=== PATIENT | male | born 1970 | race Hispanic/Latino ===

== ENCOUNTER 2021-04-11 19:22 | Observation (INO) | payer OTHER ==
[~2021-04-11] VITALS: Ht 170.2 cm; Wt 107.6 kg
[2021-04-11] MEDS ORDERED: LIPITOR10 MG PO (19:38)
[2021-04-11] MEDS ORDERED: HYDROCHLOROTHIA25 MG PO (19:38)
[2021-04-11] MEDS ORDERED: TOPROL XL100 MG PO (19:39)
[2021-04-11] MEDS ORDERED: COZAAR50 MG PO (19:39)
[2021-04-11] MEDS ORDERED: K-TAB ER20 MEQ PO (19:40)
[2021-04-11] MEDS ORDERED: ASPIRIN81 MG PO (19:40)
--- NOTE | 2021-04-11 23:20 | NUR ---
TELEPHONE REPORT RECEIVED FROM ED RN AUGUSTINA. QUESTIONS ANSWERED, AWITING pt's ARRIVAL TO FLOOR.
--- NOTE | 2021-04-11 23:30 | NUR ---
DR CHEEMA AT RN STATION, PER ANETTE, BMP TO BE DONE FOR NOW. IF POTASSIUM IS LESS THAN 3.2 OR GREATER THAN 5.5 THEN NOTIFY HIM. PROSTHETIC AIDEMYRA MOORE.
--- NOTE | 2021-04-11 23:57 | NUR ---
PT ARRIVED AT 2329 FROM ER WITH 2 CORRECTIONAL OFFICERS AT BEDSIDE. PT WAS ABLE TO MOVE OVER TO BED FROM STRETCHER. VS TAKEN AND ENTERED. REVIEWED ADMISSION HX WITH PT. OFFERED ORAL SWABS, PT DENIES NEED FOR THEM AT THIS TIME. TOLD PT HE CANNOT HAVE ANY FOOD OR WATER OVER NIGHT. ORIENTED PT AND CO'S TO CALL LIGHT. PT DENIES FURTHER NEEDS AT THIS TIME. CALL LIGHT IS CLOSE.
--- NOTE | 2021-04-12 00:10 | NUR ---
ASSESSMENT COMPLETE, IV FLUIDS HUNG AND INFUSING DIRECTED, IV SITES X2 WNL. pt AWAKE AND RESTING IN BED, [facility] GUARDS X2 IN ROOM AND E[facility]I RESTRAINTS IN PLACE. pt DENIES PAIN, REPORTS SOME NAUSEA-DENIES NEED FOR NAUSEA MEDS. CALL LIGHT IN REACH.
--- NOTE | 2021-04-12 00:20 | NUR ---
DR CHEEMA MADE AWARE OF POTASSIUM RESULT-3.0 AND CR RESULT OF 3.84. NO NEW ORDERS RECEIVED AT THIS TIME.
--- NOTE | 2021-04-12 01:20 | NUR ---
WITNESSED CONSENT FOR pt's SIGNATURE AND ON FRONT OF CHART. INSTRUMENTATION TECHNICIAN NEERAJ MOORE.
--- NOTE | 2021-04-12 01:30 | NUR ---
CALL LIGHT ANSWERED, IV PUMP BEEPING. ISSUE RESOLVED. NO FURTHER NEEDS, CALL LIGHT IN REACH. IV SITE WNL.
--- NOTE | 2021-04-12 01:45 | NUR ---
IN TO GET VITALS, CAREY EMPTIED, NO FURTHER NEEDS AT THIS TIME
--- NOTE | 2021-04-12 04:03 | NUR ---
Pt resating, eys closed, no distress. 2 [facility] officers in room
--- NOTE | 2021-04-12 04:41 | NUR ---
pt RESTING IN BED WITH EYES CLOSED, RR EVEN AND UNLABORED. NO DISTRESS NOTED. GUARDS X2 IN ROOM-E[facility]. CAREY CATHETER PATENT, IV FLUIDS INFUSING DIRECTED. CALL LIGHT IN REACH.
--- NOTE | 2021-04-12 05:52 | NUR ---
PREPROCEDURE CHECKLIST STARTED. LR WITH STRAIGHT TUBING HUNG AND IN ROOM. pt RESTING IN BED, DENIES PAIN AND NAUSEA. ASSESSMENT COMPLETE, NO ACUTE CHANGES. GUARDS IN ROOM. IV FLUIDS HUNG AND INFUSING DIRECTED, IV SITE WNL.
--- NOTE | 2021-04-12 07:34 | NUR ---
bedside report from Tarsha singh x2 in room, rn secured room and removed all am care items out of room until needed. Dr. Farley here - pt denies needs.
--- NOTE | 2021-04-12 08:34 | HP ---
[facility] [address], [place] [address] Signed ADMISSION DATE: 04/11/2021 REASON FOR ADMISSION: Probable intraabdominal abscess, possible perforated appendicitis, and acute renal failure. HISTORY: This 50-year-old man is a prisoner at [facility] and has been incarcerated for 8 years with 3 years remaining on his sentence. Approximately Thursday (today is ), he began having low abdominal pain. His pain migrated to the right lower abdomen and has become essentially unbearable. He was taken by [facility] personnel to the [place] [facility] where he was evaluated by Dr. Hutchins with a clinical diagnosis highly suggestive of appendicitis based on elevated white count of greater than 17,000, and focal tenderness in the right lower quadrant. Prior to his laboratory values returning, he did undergo an IV contrast associated CT scan of the abdomen which showed probable phlegmonous changes in the right lower quadrant without organized abscess for drainage, but a 1.2 cm appendicolith and findings suggestive of possible perforated appendicitis. He was subsequently noted to have an elevated creatinine to 4.53 with a BUN of 58 and a potassium of 2.8. Albumin was noted to be 2.7, globulin 4.1, lipase 25. PAST MEDICAL HISTORY: Significant only for hypertension. Notably his blood pressure upon presentation was 112/76. His medication for hypertension is losartan. MEDICATIONS: His other medications include aspirin 81 mg a day, atorvastatin 10 mg daily, hydrochlorothiazide 25 mg daily, losartan 50 mg p.o. b.i.d., metoprolol succinate 100 mg p.o. b.i.d., and potassium chloride tablets 20 mEq p.o. daily. REVIEW OF SYSTEMS: He has no shortness of breath or chest pain. He has no flank pain. Only right lower abdominal pain, which is significant. SOCIAL HISTORY: He has been incarcerated for 8 years and has 3 years remaining on his sentence. PAST SURGICAL HISTORY: He denies prior surgery including any abdominal operations. Electronically Signed By: PARVIN CHEEMA MD 04/12/21 0834 PATIENT NAME: JUAN CARLOS SALAZAR HISTORY AND PHYSICAL DATE OF : 70 REPORT #: [id number] PHYSICIAN: PARVIN CHEEMA MD PCP: NO PRIMARY CARE PHYSICIAN REPORT IS CONFIDENTIAL AND NOT TO BE RELEASED WITHOUT AUTHORIZATION [facility] [address] [place], [place] [address] Signed PHYSICAL EXAMINATION: GENERAL: This is a somewhat obese man who does not look systemically toxic, but does appear somewhat uncomfortable. VITAL SIGNS: Temperature is 98.7, pulse 87, pulse oximetry 97%, blood pressure 129/83. HEENT: Trachea is midline. Mucous membranes are slightly dry. CHEST: Shows normal respiratory excursion without tachypnea. HEART: Regular without murmur. ABDOMEN: Somewhat obese. Rovsing sign is positive. Additionally, he has tenderness at McBurney point. EXTREMITIES: Show no clubbing, cyanosis, or edema. : The patient also has Jacobs catheter in place following crystalloid solution bolus, which shows copious amounts of clear yellow urine, improved from its dark appearance previously apparently. LABORATORY STUDIES: As previously noted, most dominantly white count of 18.5, platelet count of 212,000, a creatinine of 4.53, potassium of 2.8, chloride of 97. ASSESSMENT: I have reviewed his clinical history, his physical exam and imaging studies. He has significant inflammatory changes in the right lower quadrant making the appendix itself indistinguishable from what I believe will likely be an abscess. There is a fecalith in the region and this may be indicative of perforated appendicitis with secondary abscess. It is quite notable and disturbing as well that his creatinine is 4.5. Notably, he was given intravenous contrast for a CT scan prior to this creatinine being available; he has undergone aggressive rehydration by Dr. Hutchins which I think likely will return his creatinine to a more normal level. Quite clearly he responded to fluid bolus as he has a good urine output and improvement in the color of the urine itself. I would recommend laparoscopic drainage of the abscess, probable appendectomy and other indicated procedures. Obviously, he may require an open procedure to accomplish this goal. I discussed with the patient the risks of bleeding, infection, progressive renal failure despite efforts to avoid it and other unforeseen complications. Understanding this, he wishes to proceed. We will plan to do this tomorrow provided his lab studies improve as expected. We will be checking basic metabolic panel at approximately 11:30 to assess improvement of his creatinine. Additionally, farm instructor labs will similarly be undertaken. On the basis of his findings currently, we will initiate meropenem as antibiotic therapy, ulcer prophylaxis with Pepcid, and parenteral pain medication to Electronically Signed By: PARVIN CHEEMA MD 04/12/21 0834 PATIENT NAME: JUAN CARLOS SALAZAR HISTORY AND PHYSICAL DATE OF : 70 REPORT #: [id number] PHYSICIAN: PARVIN CHEEMA MD PCP: NO PRIMARY CARE PHYSICIAN REPORT IS CONFIDENTIAL AND NOT TO BE RELEASED WITHOUT AUTHORIZATION [address] [address] Signed include IV Tylenol, supplemental oxygen and persistence of the Jacobs catheter that was placed in the emergency room. Parvin Cheema MD JM/MODL /[id number] cc: Asif Hutchins MD [facility] Copies: ASIF HUTCHINS MD ~ Electronically Signed By: PARVIN CHEEMA MD 04/12/21 0834 PATIENT NAME: JUAN CARLOS SALAZAR HISTORY AND PHYSICAL DATE OF : 70 REPORT #: [id number] PHYSICIAN: PRAVIN CHEEMA MD PCP: NO PRIMARY CARE PHYSICIAN REPORT IS CONFIDENTIAL AND NOT TO BE RELEASED WITHOUT AUTHORIZATION
--- NOTE | 2021-04-12 09:50 | NUR ---
rn in for hibicleanse pre op wipes - skin intact and cleaned. scds in place - iv to pump fusing schedulued IV kcl and abx via 2 pumps and sites. Standby for surgery.
--- NOTE | 2021-04-12 11:06 | NUR ---
1105 pt to or in his bed, iv strait tubing, with abx, kcl clamped for anest. to take over. scds on and pre op complete.
--- NOTE | 2021-04-12 12:04 | NUR ---
PT TAKEN TO SURGERY BY OR STAFF. WILL FOLLOW
--- NOTE | 2021-04-12 13:30 | NUR ---
04/12/21 1330 Bethanie Santacruz 1304 PT ARRIVED IN PACU SLEEPY WITH TRANSPORT GUARD AT BEDSIDE. 1329 O2 SATS 88-90% ON RA. ENCOURAGED COUGH, DEEP BREATHING WITH SATS INCREASING TO 93%.
--- NOTE | 2021-04-12 14:02 | NUR ---
PT ARRIVED TO FLOOR VIA BED. PT IS DROWSY BUT AWAKES EASILY. 2L NC IN PLACE. VITALS TAKEN AND STABLE. LAP SITES X 3 WNL. SCANT DRAINAGE FORM UPPER ABDOMEN LAP SITE. GAURD AT BEDSIDE. RESTRAINST X4 IN PLAC. PT DENEIS PAIN. REPORT GIVEN TO JESSE ALARCON.
--- NOTE | 2021-04-12 17:47 | NUR ---
pt toll room air at 98% called RN - bedside pulse ox continues to be on post op. drsg to abd cdi, with Melchor draining sero sang fluids - drain stripped and emptied - pt educated - toll reg diet, turkey sand and apple sauce. rod draining clear yellow urine qs. iv lr at 85 wnl. pt refuses scds at this time.
--- NOTE | 2021-04-12 19:55 | NUR ---
BEDSIDE REPORT FROM KARLA Nichols RN, PT RESTING IN BED, NO CONCERNS OR REQUESTS AT THIS TIME. NO DISTRESS NOTED. TWO GUARDS AT BEDSIDE.
--- NOTE | 2021-04-12 20:30 | NUR ---
in to get vitals, rod emptied, rod care complete, water filled, no further needs
--- NOTE | 2021-04-12 20:46 | NUR ---
Bertin KEANE IN PT ROOM THIS EVENING WORKING ON TITRATING OXYGEN DOWN. PT HAS NOT REPORTS OF PAIN OR NAUSEA, DIPPED INTO THE 80% ON ROOM AIR WHILE SLEEPING, 93% WHILE AWAKE, DIYA Denton IN FOR FURTHER ASSESSMENT.
--- NOTE | 2021-04-12 21:58 | NUR ---
PT OFF THE UNIT TO CT SCAN AT THIS TIME.
--- NOTE | 2021-04-12 22:27 | NUR ---
PT RESTING IN BED SNORING, HE BECAME ALERT TO NAME, HE REPORTS NO PAIN.
--- NOTE | 2021-04-12 22:31 | NUR ---
PT ON 2L O2 AT THIS TIME. NO DISTRESS NOTED 99% OXYGEN SATURATION WHILE AWAKE. TWO GUARDS AT BEDSIDE.
--- NOTE | 2021-04-13 01:21 | NUR ---
PT RESTING IN BED ALERT, REPORTS HE HAS NO PAIN, WHEN DISCUSSED FURTHER HE SAYS "I HAVE NO PAIN IF I DONT MOVE" EDUCATION ON PAIN MANAGEMENT AND NEED TO BE ABLE TO MOVE WITH TOLERABLE PAIN LEVELS. PT VERBALIZED INSTRUCTIONS WITH QUESTIONS, PT AGREES TO TAKE TYLENOL PRN AT THIS TIME FOR BASELINE PAIN MANAGEMENT.
--- NOTE | 2021-04-13 03:41 | NUR ---
PT REPORT "SOME PAIN, SOME PRESSURE" HE RUBS HIS ABDOMEN, PT ASKED IF SOMETHING OTHER THAN TYLENOL FOR PAIN AVAILABLE, THIS RN SAID, YES. PT SAID SOMETHING TAPE COATER, THIS RN SAID MOTRIN IS AVAILABLE, HE SAID "YES, PLEASE" MOTRIN GIVEN AT THIS TIME FOR ABD PAIN 08/27
--- NOTE | 2021-04-13 03:49 | NUR ---
ASTRID EMPTIED AND STRIPPED PER PROTOCOL, TO BULB SUCTION.
--- NOTE | 2021-04-13 04:42 | NUR ---
AMBULATING IN HALLS...ROUNDED ON PT TO CHECK IN, WATCHING TV, SAID HE IS NOT TIRED, GAVE EDUCATION ON NEED TO AMBULATE FREQUENTLY, HE IS AGREEABLE, PT UP TO AMBULATE FOR FIRST TIME NOW, AMBULATED TWO LAPS, TOLERATED WELL, HE DECLINES PAIN MEDICATIONS AT THIS TIME. HE SAID "NEXT TIME YOU ROUND I WILL TAKE THE TYLENOL" THIS RN SAID THAT WILL BE FINE. PT PROVIDED WARM BLANKET AND CLEAN SHEETS, NOTHER REQUESTS OR CONCERNS.
--- NOTE | 2021-04-13 05:15 | NUR ---
PT HAS SLEPT FIRST HALF OF SHIFT, HE HAS BEEN AWAKE SINCE 0300, HE HAS CONTINUED TO DECLINE NEED FOR PAIN MEDICATIONS, EDUCATION PROVIDED, HE HAS AGREED TO TYLENOL AND MOTRIN THIS SHIFT. HE HAS BEEN UPT O AMBULATE TWO LAPS ON MEDICAL SURGICAL UNIT, HE TOLERATED ACTIVITY WELL. HE HAS REQUIRED 1L OXYGEN WHILE SLEEPING, RA WHILE AWAKE. ASTRID HAD 40ML DRAINAGE OUT SEROUS SANGUINEOUS, CAREY PATENT QUANTITY SUFFICIENT URINE OUT PLUS. PT ABD IS FIRM AND MILDLY DISTENDED, NO FINE ARTS INSTRUCTOR THIS SHIFT.
--- NOTE | 2021-04-13 06:46 | NUR ---
PT UP TO AMBULATE IN HALLS WITH GUARDS X2 THIS AM. HE REPORTS PAIN 3/10, TYLENOL PRN ADMINISTERED 30MINS EARLY PER ORDER. DISCUSSED EATING ON THE LIGHT SIDE UNTIL BOWEL FUNCTION RETURNS, HE VERBALIZED UNDERSTANDING. DSICUSSED NEED FOR AMBULATING THROUGHTOUT THE DAY, HE AGREES TO ALL CARE PLAN. V/S COMPLETE
--- NOTE | 2021-04-13 09:06 | NUR ---
PT LAYING QUIETLY IN BED WATCHING TV. CALL LIGHT YADIRA ALMEIDA. NO FURTHER NEEDS AT THIS TIME.
--- NOTE | 2021-04-13 10:35 | NUR ---
Patient reports tolerable abdominal pain. Patient has been up ambulating, tolerating well. Patient's abdomen is firm. Patient reports passing flatus, denies nausea. No current needs. Two correctional officers at bedside.
--- NOTE | 2021-04-13 11:32 | NUR ---
Motrin 600mg po admin for reports of 4/10 abdominal pain.
--- NOTE | 2021-04-13 11:47 | NUR ---
Notified Dr. Farley regarding positive blood culture results from lab. Per lab; +bc with gram negative rods in anaerobic bottle. No new orders obtained from Dr. Farley at this time.
--- NOTE | 2021-04-13 13:38 | NUR ---
Patient up ambulating in hallway with two correctional officers at his side. Patient ambulated very well, steady gate noted.
--- NOTE | 2021-04-13 14:05 | NUR ---
PT LAYING IN BED WATCHING TV. CALL LIGHT WITHIN REACH, NO FURTHER NEEDS AT THIS TIME.
--- NOTE | 2021-04-13 14:35 | NUR ---
Jacobs catheter removed per provider order. Catheter tip intact. Patient tolerated well. Patient due to void.
--- NOTE | 2021-04-13 16:35 | NUR ---
PT ACCEPTED AND WAS GIVEN SUPPLIES FOR BB. PT REQUESTED THAT [facility] GUARDS ASSIST WITH BB. CALL LIGHT WITHIN REACH, NO FURTHER NEEDS AT THIS TIME. JUICE BROUGHT FOR PT.
--- NOTE | 2021-04-13 17:04 | NUR ---
Tylenol 1000mg po admin for 4/10 abdominal pain. LLQ raine drain emptied, 20ml sarosang drainage, tube to suction. Abdominal lap sites are unchanged, upper abd dressing has sarosang drainage noted on gauze. Patient reports he continues to pass flatus. No nausea this shift. Patient reports pain is well controlled.
--- NOTE | 2021-04-13 17:27 | NUR ---
GISELA from Dr. Farley to place an order for a CBC and BMP tomorrow morning 04/14. GISELA to place order for KCL 20meq IV to infuse over two hours and repeat times three doses to total 80meq total dose.
--- NOTE | 2021-04-13 17:28 | NUR ---
PT WALKING AROUND ROOM UNDER SUPERVISION OF [facility] GUARDS. CALL LIGHT WITHIN REACH, NO FURTHER NEEDS AT THIS TIME.
--- NOTE | 2021-04-13 19:15 | NUR ---
REPORT FROM SPIKE Morales RN. PT DOING WELL, PO ABX, ROOM AIR, TYELNOL AND MOTRIN FOR PAIN, AMBULATING FREQUENT, PASSING FLATUS AND HAD BM. ASTRID PUT OUT 20ML DRAINAGE. NO CURRENT CONCERNS, PT PROGRESSING EXPECTED. CAREY REMOVED TODAY PT VOIDING Q.S.
--- NOTE | 2021-04-13 20:35 | NUR ---
in to get vitals, iv pump alarming, rn informed, pt is due to void as recently up to the toilet at shift change, water an juice provided at this time
--- NOTE | 2021-04-13 20:48 | NUR ---
PT RESTING IN BED GUARDS X2 IN ROOM. PT SMILING, HE AGREES HE HAD A GOOD DAY. PT REPORTS NO PAIN, IV INFUSING POTASSIUM, EDUCATION PROVIDED ABOUT POTASSIUM AND IV PAIN IF TIS OCCURS, THIS RN WILL REPLACE AT REQUEST. IV SITE WNL AT THIS TIME, NO SWELLING OR REDNESS. PT REPORTS NOT HURTING. ASTRID 5ML. EMPTIED, STRIPPED AND PLACED BACK TO BULB SUCTION. V/S STABLE, ASSESSMENT COMPLETE.
--- NOTE | 2021-04-13 21:42 | NUR ---
PT CALLED NURSES STATION TO REPORT THAT IV PUMP IS BEEPING, PROGRAMED AND RESTARTED POTASSIUM HOUR TWO OF TWO HOUR INFUSION FOR THIS POTASSIUM INFUSION. PT REPORTS NO FURTHER NEEDS AT THIS TIME, GUARDS IN ROOM X2, THEY VERBALIZED NO NEEDS AT THIS TIME.
--- NOTE | 2021-04-13 23:06 | NUR ---
PT RESTING IN BED AGRESS TO MOTRIN PRN FOR MILD PAIN. THREE OF FOUR POTASSIUM INFUSION STARTED. IV SITE WNL, NO REDNESS OR SWELLING. PT SAYS "I CAN FEEL IT BUT IT IS OK, I DONT WANT ANYMORE WHOLES POKED IN ME."
--- NOTE | 2021-04-14 02:54 | NUR ---
PT REPORT NO PAIN, NO NEEDS AT THIS TIME. ASSESSMENT COMPLETE. FOUR OF FOUR POTASSIUM INFUSION STARTED NOW TO RUN OVER TWO HOURS. TWO GUARDS AT BEDSIDE, OFFERED COFFEE, THEY SAID NO THANK YOU AT THIS TIME.
--- NOTE | 2021-04-14 04:44 | NUR ---
PT POTASSIUM INFUSION COMPLETE, PT S/L FOR AMBULATION, PT AGREED TO TAKE TYLENOL AT THIS TIME. PT ALERT AND ORIETNED. GUARDS IN ROOM X2, PT VERBALIZED NOT NEEDING ANYTHING MORE AT THIS TIME.
--- NOTE | 2021-04-14 04:48 | NUR ---
PT HAS SLEPT INTERMITTENLY, HE HAS HAD MOTRIN AND TYLENOL PRN FOR PAIN ONCE EACH. HE AMBULATES ONE PERSON ASSIST. 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 HE S/L FOR AMBULATION. VOIDING Q.S., ASTRID DRAINED 5 UNITS OVER SHIFT, INCISIONS WNL. NO CONCERNS AT THIS TIME.
--- NOTE | 2021-04-14 05:01 | NUR ---
PT UP AMBULATING IN HALLS AT THIS TIME WITH GUARDS X2. PT STANDBY ASSIST, STEADY ON FEET, TOLERATING ACTIVITY WELL.
--- NOTE | 2021-04-14 06:18 | NUR ---
PT HAS SLEPT INTERMITTENLY, HE HAS HAD MOTRIN AND TYLENOL PRN FOR PAIN ONCE EACH. HE AMBULATES ONE PERSON ASSIST. 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 HE S/L FOR AMBULATION. VOIDING Q.S., ASTRID DRAINED 5 UNITS OVER SHIFT, INCISIONS WNL. NO CONCERNS AT THIS TIME.
--- NOTE | 2021-04-14 07:49 | NUR ---
PT RESTING IN BED EYES CLOSED AT TIME OF SHIFT EXCHANGE. AWAKE NOW WATCHING TV SAYS "I FEEL GREAT" WHEN ASKED, AGREES HE SLEPT WELL. PT DENIES PAIN AT THIS TIME AGREES TO AMBULATE THE HALLS SEVERAL TIMES THIS SHIFT.
--- NOTE | 2021-04-14 08:28 | NUR ---
PT TOLERATES 100% OF MORNING MEAL DENIES NAUSEA OR PAIN. FRESH H20 TO BEDSIDE. CHATA X2 PRESENT
--- NOTE | 2021-04-14 09:49 | NUR ---
PT RESTING IN BED WITH 2 GUARDS IN ROOM. CALL LIGHT WITHIN REACH. NO FURTHER NEEDS AT THIS TIME.
--- NOTE | 2021-04-14 10:03 | NUR ---
PT SITTING UPRIGHT WATCHING TV DENIES DISCOMFORTS OR NEEDS
--- NOTE | 2021-04-14 11:17 | NUR ---
PT AMBULATES SEVERAL LAPS IN THE [place]ILL[place] THEN RETURNS TO RESTING IN BED. NO C/O.
[2021-04-14] MEDS ORDERED: IBUPROFEN600 MG PO (12:48)
[2021-04-14] MEDS ORDERED: METRONIDAZOLE250 MG PO (12:48)
[2021-04-14] MEDS ORDERED: OXYCODON-ACETA1 EAC2 PO (12:48)
[2021-04-14] MEDS ORDERED: CIPROFLOXACIN500 MG PO (12:48)
[2021-04-14] MEDS ORDERED: ACETAMINOPHEN500 MG PO (12:49)
--- NOTE | 2021-04-14 13:38 | NUR ---
DC INSTRUCTIONS DISCUSSED AT LENGTH R/T WOUND HEALING, DRY DRESSING, ASTRID DRAIN CARE, LIFTING RESTRICTIONS ETC. PT VERBALIZES UNDERSTANDING DENIES QUESTIONS. REPORT CALLED TO [facility] RN SAME INSTRUCTIONS GIVEN TO HER, WELL REPORT ON PT CONDITION. INSTRUCTIONS PRINTED AND SENT WITH CHATA FOR PT AT [facility].
--- NOTE | 2021-04-16 14:50 | PATH ---
[facility] [address] [place], [place] [address] Signed SPECIMEN(S): A NECROTIC APPENDIX AND FECALITH SPECIMEN SOURCE: A. NECROTIC APPENDIX AND FECALITH CLINICAL HISTORY: Perforated appendicitis, intra-abdominal abscess, renal failure. FINAL PATHOLOGIC DIAGNOSIS: Appendix, appendectomy: - Acute necrotizing appendicitis with evidence of perforation, serosal adhesions, and abscess formation. DDF:cml:C2NR MICROSCOPIC EXAMINATION: Histologic sections of all submitted blocks are examined by light microscopy. These findings, together with the gross examination, support the pathologic diagnosis. GROSS DESCRIPTION: The specimen, labeled "CF, A," and designated on the requisition "necrotic appendix with fecalith," is received in formalin and consists of Specimen: Multiple fragments of appendix with mesoappendix. Dimensions: 6.4 x 6.0 x 3.2 cm in aggregate. Serosa: Red-brown to padilla-green. Disruption: Received in multiple pieces. Inking: Staple line is inked black. Mucosa: Brown-quispe to padilla-green. Fecalith: One black calcified fecalith (1.0 cm in greatest dimension). Additional: None. Manager Lab sections including cross section, possible tip, and resection margin, shaved, are submitted in cassette (A1). AC (under the direct supervision of a pathologist) The Gross Description was prepared using a voice recognition system. The report was reviewed for accuracy; however, sound-alike word errors, addition and/or deletions may occur. If there is any question about this report, please contact Client Services. PERFORMING LABORATORY: The technical component was performed by [employer], [address] [place] [id number] (Carnival Worker: Sheila Barry MD; CLIA# [id number]) PATIENT NAME: JUAN CARLOS SALAZAR PATHOLOGY DATE OF : 70 REPORT #: [id number] PHYSICIAN: GIOVANNA PATHOLOGY PCP: NO PRIMARY CARE PHYSICIAN REPORT IS CONFIDENTIAL AND NOT TO BE RELEASED WITHOUT AUTHORIZATION [facility] [address] [place], [place] [address] Signed Professional [facility], [address] [address] (CLIA# [id number]). Diagnostician: Nemesio Reardon DO Pathologist Electronically Signed 04/16/2021 Copies: ~ PATIENT NAME: JUAN CARLOS SALAZAR PATHOLOGY DATE OF : 70 REPORT #: [id number] PHYSICIAN: GIOVANNA PATHOLOGY PCP: NO PRIMARY CARE PHYSICIAN REPORT IS CONFIDENTIAL AND NOT TO BE RELEASED WITHOUT AUTHORIZATION
--- NOTE | 2021-04-17 13:21 | OR ---
[facility] [address], [place] [address] Signed DATE OF OPERATION: 04/12/2021 SURGEON: Parvin Cheema MD PREOPERATIVE DIAGNOSES: 1. Right lower abdominal abscess, probable perforated appendicitis. 2. Dehydration an sepsis related acute renal failure. POSTOPERATIVE DIAGNOSES: 1. Right lower abdominal abscess, probable perforated appendicitis. 2. Generalized peritonitis. 3. Necrotic appendix with free fecalith. 4. Dehydration and sepsis related acute renal failure. PROCEDURES: 1. Laparoscopic drainage of intraabdominal abscess and lavage. 2. Laparoscopic debridement and excision of necrotic appendix and retrieval of fecalith. 3. Placement of drain. ANESTHESIA: General endotracheal, Parvin Lopez CRNA and local 20 mL of 0.25% Marcaine with epinephrine. INDICATIONS: This 50-year-old man is a prisoner at [facility], described a few days onset of lower abdominal pain with intolerable pain prompting emergency room evaluation yesterday. This included marked tenderness in the right lower abdomen. He was noted to have an elevated creatinine greater than 5.4, but a potassium that was relatively low. A CT scan was performed in the direction of Dr. Marium Varner, emergency room physician upon consultation, which showed what appeared to be a probable abscess in the right lower abdomen as well as a radiodense fecalith. The patient was admitted, given broad-spectrum antibiotics and aggressive fluid resuscitation and his creatinine has improved to 3.1 and he has good urine output persistently. He still has considerable tenderness in the right lower abdomen and throughout the remaining abdomen, but to a lesser extent. He is now to undergo laparoscopy with probable laparoscopic drainage of abscess, probable appendectomy as appropriate. The risks of bleeding, infection, need for open procedure and other unforeseen complications was reviewed in detail with him. He understands and wished to proceed. Electronically Signed By: PARVIN CHEEMA MD 04/17/21 1321 PATIENT NAME: JUAN CARLOS SALAZAR OPERATIVE REPORT DATE OF : 70 REPORT #: [id number] PHYSICIAN: PARVIN CHEEMA MD PCP: NO PRIMARY CARE PHYSICIAN REPORT IS CONFIDENTIAL AND NOT TO BE RELEASED WITHOUT AUTHORIZATION [facility] [address], [place] [address] Signed FINDINGS: Elaborate tattoos of his abdominal wall were not needlessly disrupted in any way. Laparoscopy confirmed generalized peritonitis and some inflammatory fluid along the right paracolic gutter and ultimately a well-formed abscess in the right lower quadrant. This was related to a completely necrotic appendix, which was essentially disintegrated, but with a fecalith ultimately identified and removed. Complete irrigation and debridement of the necrotic tissue was undertaken including the base of the appendix and the fecalith that was identified was retrieved as well. A drain was placed as well. DESCRIPTION OF PROCEDURE: The patient was brought to the operating room, given a general endotracheal anesthetic. Antibiotic meropenem was infused. He had been on meropenem already. A Jacobs catheter was already in place draining clear yellow urine. Sequential compression device stockings were used. The abdomen was clipped and prepared with chlorhexidine solution and draped sterilely. An infraumbilical incision was made and using an open Jeet cannula technique, pneumoperitoneum was achieved to a level of 14 mmHg of carbon dioxide gas. Intraabdominal inspection showed no sign of ascites or carcinomatosis, but certainly did show inflammatory fluid along the right paracolic gutter and a bit over the dome of the liver. An additional 12 mm port was placed in the epigastric area and the camera was placed to that site. With single hand manipulation, the right lower abdomen was interrogated showing dense adhesion of cecum to the abdominal wall. The suprapubic port was placed under direct visualization avoiding injury to major bladder. Using 2-hand manipulation, blunt dissection was undertaken in the right lower quadrant, peeling away the cecum and revealing an abscess. A well-formed abscess cavity was noted lateral to this. Some specimen of drainage was sent for Gram stain and culture. Bystanders in the room noticed quite a malodorous aroma to the drained fluid. Further manipulation showed a well-formed abscess cavity and marked inflammatory changes at 1st, difficult to distinguish from normal tissue. With various manipulations, the tip of the appendix could be identified and very dense and fatty mesoappendix manipulated and ultimately transected in pieces. There was minimal with any blood flow remain in the edematous mesoappendix. By that point, the appendix could be more clearly identified and was dissected more toward its base ultimately to the area of the cecum. Complete necrosis of the mid 3rd of the appendix was noted. The largest portion was excised with a JP stapling device and passed from the abdomen with an endobag. Additional debridement of chunks of necrotic tissue were undertaken protecting them from the subcutaneous space upon extraction. Ultimately, what would be the base of the appendix was able to be grasped and stapling device used to transect and flush with the cecum and it was passed as well. Photographs were taken throughout. Irrigation was undertaken and a free fecalith was identified, retrieved, and removed. At this point, Electronically Signed By: PARVIN CHEEMA MD 04/17/21 1321 PATIENT NAME: JUAN CARLOS SALAZAR OPERATIVE REPORT DATE OF : 70 REPORT #: [id number] PHYSICIAN: PARVIN CHEEMA MD PCP: NO PRIMARY CARE PHYSICIAN REPORT IS CONFIDENTIAL AND NOT TO BE RELEASED WITHOUT AUTHORIZATION [facility] [address], [place] [address] Signed good irrigation had shown that there was no sign of ongoing bleeding or other problems or undrained abscess. Through the suprapubic trocar site, a 7 mm flat Hai drain was placed into the depths of the abscess cavity, which was a well-formed area. The trocars were removed under direct visualization showing no signs of bleeding. The infraumbilical fascial incision was reapproximated with interrupted 0 Vicryl suture and subsequently a running 0 PDS suture. 20 mL of 0.25% Marcaine with epinephrine injected in the trocar sites. The drain was secured to the skin with nylon suture and attached to bulb suction. Irrigation was undertaken more fully and the skin was then closed with interrupted 2-0 Vicryl after application of local anesthetic, Marcaine 0.25% with epinephrine. Steri-Strips were applied as was as an Acticoat dressing. He is allowed to emerge from sedation, extubated, and taken to recovery room in good condition. Though, the operation was prolonged and difficult, it was accomplished with great success and high likelihood of cure. MD AMY Shah/TRAVIS /[id number] cc: HAN Gibbons [facility] Copies: MIRIAN ANTONIO ~ Electronically Signed By: PARVIN CHEEMA MD 04/17/21 1321 PATIENT NAME: JUAN CARLOS SALAZAR OPERATIVE REPORT DATE OF : 70 REPORT #: [id number] PHYSICIAN: PARVIN CHEEMA MD PCP: NO PRIMARY CARE PHYSICIAN REPORT IS CONFIDENTIAL AND NOT TO BE RELEASED WITHOUT AUTHORIZATION
--- NOTE | 2021-04-17 13:21 | DS ---
[facility] [address] [place] [place] [address] Signed ADMISSION DATE: 04/11/2021 DISCHARGE DATE: 04/14/2021 REASON FOR ADMISSION: This 50-year-old man is a prisoner at [facility] and has been incarcerated for 8 years with 3 years remaining on his sentence. Four days prior to admission, began having low abdominal pain, which migrated to the right lower abdomen and has become essentially unbearable. He was seen in [place] [facility] and evaluated by Dr. Varner with a clinical diagnosis consistent with appendicitis based on elevated white count of greater than 17,000, and focal tenderness in the right lower quadrant. He underwent a CT scan with IV contrast, which showed probable phlegmonous changes in the right lower quadrant, and on my interpretation probable abscess as well as findings of a 1.2 cm appendicolith and findings suggestive of perforated appendicitis and abscess. He additionally was noted to have an elevated creatinine of 4.53 with a BUN of 58 and potassium of 2.8. He was admitted for further evaluation and care for intraabdominal abscess probably related to perforated appendicitis. PERTINENT PHYSICAL EXAMINATION: GENERAL: Showed a somewhat obese man, who look systemically toxic, but was uncomfortable. VITAL SINGS: Temperature is 98.7, pulse 87, pulse oximetry 97%, blood pressure 129/83. CHEST: Clear. HEART: Regular without murmur. ABDOMEN: Obese. Rovsing sign was positive. He had tenderness at McBurney's point. LAB STUDIES: Notable lab studies at admission showed a white count of 18.5, platelet count of 212,000, creatinine 4.53, potassium 2.8, chloride of 97. HOSPITAL COURSE: The patient was admitted and given fluid resuscitation and cautious potassium administration. His creatinine decreased to 3.1, potassium to 2.9. Additional potassium was given. He subsequently that day underwent laparoscopy where he was found to have well-formed abscess in the right lower quadrant in relation to perforated gangrenous appendicitis. Operation consisted of drainage of the intraabdominal abscess and lavage and ultimately piecemeal debridement of necrotic appendix and recovery of a free fecalith. A drain was placed as well through the suprapubic port site. Postoperatively, he did much better. He soon after operation was feeling no significant Electronically Signed By: PARVIN CHEEMA MD 04/17/21 1321 PATIENT NAME: JUAN CARLOS SALAZAR DISCHARGE SUMMARY DATE OF : 70 REPORT #: [id number] PHYSICIAN: PARVIN CHEEMA MD PCP: NO PRIMARY CARE PHYSICIAN REPORT IS CONFIDENTIAL AND NOT TO BE RELEASED WITHOUT AUTHORIZATION [facility] [address] [place], [place] [address] Signed right lower abdominal pain and was advanced in his diet. His blood culture was positive for gram-positive cocci. Identification is still pending. Broad-spectrum antibiotic meropenem was given initially and transition to Flagyl and Cipro antibiotics. By time of discharge, he was ambulating well, tolerating a regular diet, has a creatinine in the normal range of 1.04, potassium 3.3, the white count of 9.0, hematocrit of 38.7, and platelets 223,000. He will be discharged home with the drain in place, although it does not show thick turbulent, there was thick opaque fluid, it does have minimal turbidity and therefore should remain in place. He will additionally have an additional week of oral antibiotics, Cipro, and Flagyl on the basis of his blood cultures and findings of the abscess. I will see him back in the [facility] next time I am there and remove the drain; if timeline inadequate, then an office visit can be undertaken or possibly drain removal can be undertaken by Dr. Moreira or HAN Mckeon, with coordination beforehand. I am waiting for the drain to have more clarity before removing it given the operative findings. DISCHARGE MEDICATIONS: Include: 1. Cipro 500 mg one tablet p.o. b.i.d. #14. 2. Flagyl 500 mg p.o. t.i.d. with meals #21. 3. Ibuprofen 600 mg p.o. q.6 as needed for pain #60. 4. Percocet 7.5/325 1-2 p.o. q.6 hours as needed for pain. 5. No refill. 6. Tylenol plain 1000 mg p.o. q.6 hours as needed for pain #60. He will continue with his usual medications of: 1. Atorvastatin 10 mg p.o. daily. 2. Hydrochlorothiazide 25 mg p.o. daily. 3. Losartan 50 mg p.o. b.i.d. 4. Metoprolol-XL 100 mg p.o. at bedtime. 5. Potassium chloride 20 mEq tablets daily. DISCHARGE DIAGNOSES: 1. Sepsis including positive blood culture, right lower quadrant abscess related to gangrenous necrotic and disintegrated appendicitis with free fecalith. 2. Acute renal failure (creatinine 4.51) related to dehydration and sepsis. 3. Status post laparoscopic drainage of intraabdominal abscess, concurrent appendectomy ( piecemeal) , and retrieval of free fecalith and placement of drain. 4. Hypertension. 5. Chronic hypokalemia. Electronically Signed By: PARVIN CHEEMA MD 04/17/21 1321 PATIENT NAME: JUAN CARLOS SALAZAR DISCHARGE SUMMARY DATE OF : 70 REPORT #: [id number] PHYSICIAN: PARVIN CHEEMA MD PCP: NO PRIMARY CARE PHYSICIAN REPORT IS CONFIDENTIAL AND NOT TO BE RELEASED WITHOUT AUTHORIZATION [address], [place] [address] Signed MD AMY Shah/TRAVIS /[id number] cc: MD Speedy Tristan FNP Copies: KATHLEEN MOREIRA MD, MICHELE R FNP ~ Electronically Signed By: PARVIN CHEEMA MD 04/17/21 1321 PATIENT NAME: JUAN CARLOS SALAZAR DISCHARGE SUMMARY DATE OF : 70 REPORT #: [id number] PHYSICIAN: PARVIN CHEEMA MD PCP: NO PRIMARY CARE PHYSICIAN REPORT IS CONFIDENTIAL AND NOT TO BE RELEASED WITHOUT AUTHORIZATION
== END 2021-04-14 13:35 | disposition home or self-care (01) ==
LOC: ED 19:22 → MS 19:24
PROVIDERS: ADMIT Surgery; ATTEND Surgery
PROC: 0W9F4ZZ Drainage of Abdominal Wall, Percutaneous Endoscopic Approach (ICD-10-PCS; principal; 2021-04-12 10:45)
PROC: 0DTJ4ZZ Resection of Appendix, Percutaneous Endoscopic Approach (ICD-10-PCS; 2021-04-12 10:45)
DX: K35.33 Acute appendicitis with perforation, localized peritonitis, and gangrene, with abscess (principal); I10 Essential (primary) hypertension; Z20.822 Contact with and (suspected) exposure to COVID-19; E86.0 Dehydration; N17.9 Acute kidney failure, unspecified
CPT/HCPCS: 00840; 51702; 74177; 80048; 80053; 81001; 83605; 83690; 83735; 85025; 87205; 94760; 94762; 96368; 99285-25; A9270; C9803; J0330; J1100; J1170; J1644; J1885; J2185; J2250; J2405; J2704; J2765; J3010; J3480; J7030; J7060; J7121; Q9967; U0003